=== PATIENT | male | born 1950 | race Caucasian/White ===

== ENCOUNTER 2019-12-12 09:46 | Outpatient (CLI) | payer MEDICARE | END 2019-12-12 23:59 | disposition home or self-care (01) | LOC: WOUND 09:46 | PROVIDERS: ATTEND Podiatrist Foot & Ankle Surgery | DX: E11.621 Type 2 diabetes mellitus with foot ulcer (principal); I70.245 Atherosclerosis of native arteries of left leg with ulceration of other part of foot; L97.521 Non-pressure chronic ulcer of other part of left foot limited to breakdown of skin; I10 Essential (primary) hypertension; E78.00 Pure hypercholesterolemia, unspecified; F41.9 Anxiety disorder, unspecified; E11.42 Type 2 diabetes mellitus with diabetic polyneuropathy; G90.09 Other idiopathic peripheral autonomic neuropathy; E66.9 Obesity, unspecified; Z68.33 Body mass index [BMI] 33.0-33.9, adult; Z85.46 Personal history of malignant neoplasm of prostate; Z85.47 Personal history of malignant neoplasm of testis; Z88.0 Allergy status to penicillin | CPT/HCPCS: 11721; G0463; 11720 ==

== ENCOUNTER 2020-01-14 12:19 | Outpatient (CLI) | payer MEDICARE | END 2020-01-14 23:59 | disposition home or self-care (01) | LOC: CVU 12:19 | PROVIDERS: ATTEND Podiatrist Foot & Ankle Surgery | DX: I70.292 Other atherosclerosis of native arteries of extremities, left leg (principal); I87.333 Chronic venous hypertension (idiopathic) with ulcer and inflammation of bilateral lower extremity; E11.9 Type 2 diabetes mellitus without complications | CPT/HCPCS: 93922; 93925; 93970 ==